=== PATIENT | male | born 1980 | race Caucasian/White ===

== ENCOUNTER → 2020-07-13 13:20 | Outpatient (BNVA) | payer BC, SELFPAY | PROVIDERS: Family Provider Family Medicine; Visit Provider Nurse Practitioner | DX: Z20.828 Contact with and (suspected) exposure to other viral communicable diseases (principal) | CPT/HCPCS: 87635 ==

== ENCOUNTER 2022-12-18 09:12 | Outpatient (CLI) | payer BC, SELFPAY ==
--- NOTE | 2022-12-18 | CT_ITS ---
WS: [id number] CT LEFT FOOT, NONCONTRAST. HISTORY: DEFORMITY, pain. Technique: All CT scans at [facility] use at least one of these dose optimization techniques: automated exposure control; mA and/or kV adjustment per patient size (includes targeted exams where dose is matched to clinical indication); or iterative reconstruction. DLP: 116.25 mGy.cm COMPARISON: None available. Osseous bridging between the anterior process of the calcaneus and the navicular. There is a complete bone bridging with no articulation. Normal appearance of the talus. No additional coalitions are remberto dent. Normal alignment of the tarsal metatarsal articulations. No fractures or displacement. Site of the Ac hilles tendon attachment is normal. No plantar spurring. Well-circumscribed 7 mm osseous density adjacent to the cuboid consistent with an os cuboideum second arium. CT/CT foot LT wo con* [id number] IMPRESSION: 1. 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
== END 2022-12-18 09:13 | disposition home or self-care (01) ==
PROVIDERS: PCP Family Medicine; Visit Provider Podiatrist Primary Podiatric Medicine
DX: Q66.89 Other specified congenital deformities of feet (principal)
CPT/HCPCS: 73700

== ENCOUNTER → 2024-05-01 10:57 | Outpatient (BNVA) | payer BC, SELFPAY | PROVIDERS: PCP Family Medicine; Visit Provider Nurse Practitioner Family | DX: M25.572 Pain in left ankle and joints of left foot (principal) | CPT/HCPCS: 73610; 73630 ==

== ENCOUNTER 2024-05-02 11:59 | Outpatient (CLI) | payer BC, SELFPAY | END 2024-05-02 12:00 | disposition home or self-care (01) | LOC: LAB 12:02 | PROVIDERS: PCP Family Medicine; Visit Provider Surgery | DX: K92.1 Melena (principal) | CPT/HCPCS: 82274; 83630 ==

== ENCOUNTER 2024-05-16 06:39 | Day surgery (SDC) | payer BC, SELFPAY ==
--- NOTE | 2024-05-16 06:11 | W.PM.OPSUD ---
Surgery/Procedure H&P Update DATE OF PROCEDURE: May 16, 2024 DATE H&P PERFORMED: 04/21/24 H&P UPDATE INFORMATION: I have reviewed H&P completed within last 30 days, I have examined patient prior to procedure, No changes to prior documentation and H&P is in [facility] EMR on date indicated PLANNED PROCEDURE: Operation Date: 05/16/24 07:45 Proposed Procedures p EGD 61387, 81629, G0105, K92.1(Not Applicable) - Ilya Roberts MD s Colonoscopy(Not Applicable) - Ilya Roberts MD
[2024-05-16 06:50] VITALS: BP 140/89; PULSE 69; RESP 18; TEMP 36.2; O2SAT 95; BMI 31.6
[2024-05-16] MEDS: sodium chloride 0.9% 1,000 ML 30 ML IV (07:00)
--- NOTE | 2024-05-16 07:15 | ANES.PREANE2 ---
Pre-Anesthetic Assessment Height/Weight: Height 1.85 m Weight 108.862 kg Temp Pulse Resp BP Pulse Ox O2 Del Method 97.1 F L 69 18 140/89 95 Room Air 05/16/24 06:50 05/16/24 06:50 05/16/24 06:50 05/16/24 06:50 05/16/24 06:50 05/16/24 06:50 Operation Date: 05/16/24 07:45 Proposed Procedures p EGD 52528, 77205, G0105, K92.1(Not Applicable) - Ilya Roberts MD s Colonoscopy(Not Applicable) - Ilya Roberts MD Familial anesthetic complications: None Was Beta Robert taken within 24 hours: N/A Was Clonidine taken within 24 hours: N/A Last intake: Intake Last Liquid Date 05/14/24 Last Liquid Time 20:00 Last Solid Date 05/14/24 Last Solid Time 18:00 Social No alcohol and No tobacco Exam alert, oriented x 3, clear to auscultation bilaterally and regular rate & rhythm Airway Mallampati: Class IV Dentition: full Anesthetic Plan ASA status: 1 Anesthesia: MAC Risk of > 500 ml blood loss (7ml/kg in children): No Medications/Allergies Home Medications Medication Instructions Recorded Confirmed Last Taken Type No Known Home Medications 12/21/22 05/11/24 Unknown History Allergies Allergy/AdvReac Type Severity Reaction Status Date / Time No Known Allergies Allergy Verified 05/11/24 11:19 Current Medications Generic Name Dose Route Start Last Admin Trade Name Freq PRN Reason Stop Dose Admin Sodium Chloride 1,000 mls @ 30 mls/hr 05/16/24 06:45 05/16/24 07:00 Sodium Chloride 0.9% IV 05/17/24 06:44 30 mls/hr .Q24H KEVIN Administration PFSH Anesthesia Surgical History Hx of appendectomy Social History Smoking and tobacco/nicotine status: former use of tobacco/nicotine Alcohol intake: current Alcohol intake frequency: 0-2 Drinks per Day Substance/Drug Use: never Data Anesthesia Cardiac Studies: No Data to Display
[2024-05-16 08:22] VITALS: BP 110/74; PULSE 67; RESP 20; TEMP 36.3; O2SAT 96
[2024-05-16 08:31] VITALS: BP 129/89; PULSE 69; RESP 18; O2SAT 97
[2024-05-16 08:36] VITALS: BP 133/90; PULSE 63; RESP 18; O2SAT 97
--- NOTE | 2024-05-16 08:50 | ANE.PACU2 ---
Inpatient post-anesthesia follow up: Airway intact: Yes Vital signs: Temperature 97.3 F Pulse Rate 63 Respiratory Rate 18 Blood Pressure 133/90 Pulse Oximetry 97 Oxygen Delivery Me thod Room Air Oxygen Flow Rate Fraction of Inspir ed Oxygen Hydration adequate: Yes Nausea and vomiting: No Pain level: 1 Mental status: Baseline
== END 2024-05-16 08:51 | disposition home or self-care (01) ==
PROVIDERS: PCP Family Medicine; Visit Provider Surgery
PROC: 0DJ08ZZ Inspection of Upper Intestinal Tract, Via Natural or Artificial Opening Endoscopic (ICD-10-PCS; CPT 43235; principal; 2024-05-16 07:45)
PROC: 0DJD8ZZ Inspection of Lower Intestinal Tract, Via Natural or Artificial Opening Endoscopic (ICD-10-PCS; CPT 45378; 2024-05-16 07:45)
DX: K92.1 Melena (principal); K57.30 Diverticulosis of large intestine without perforation or abscess without bleeding; K64.8 Other hemorrhoids; K44.9 Diaphragmatic hernia without obstruction or gangrene; K29.80 Duodenitis without bleeding; K29.50 Unspecified chronic gastritis without bleeding; Z87.891 Personal history of nicotine dependence
CPT/HCPCS: 43239; 45378; 88305; 88342; J2704; J7030

== ENCOUNTER 2024-09-05 08:25 | Outpatient (CLI) | payer BC, SELFPAY ==
[2024-09-05 09:10] LABS: Microalbumin Total Volume 1575 mL; Total Volume Urine 1575 ml
[2024-09-05 09:21] LABS: Glomerular Filtration Rate 91.7 mL/min (90-130)
[2024-09-05 09:24] LABS: Urine Total Protein 5.5 mg/dL (0-150)
[2024-09-05 09:27] LABS: Microalbumin 24 Hour Result 19 mg/24HR (0-30); Microalbumin Result 1.2 mg/dL
[2024-09-05 09:34] LABS: Creatinine Clearance, Urine 149 mL/Min (97-137); Creatinine, Urine (Cre Clear) 117 mg/dL (39-259); Total Volume, Urine 1575 mL; Urine Total Protein 24 Hour 86.6 mg/24hr (0-150)
== END 2024-09-05 08:26 | disposition home or self-care (01) ==
LOC: LAB 08:34
PROVIDERS: PCP Family Medicine; Visit Provider Internal Medicine
DX: Z00.5 Encounter for examination of potential donor of organ and tissue (principal)
CPT/HCPCS: 82043; 82575; 84156

== ENCOUNTER 2025-01-05 10:11 | Outpatient (CLI) | payer BC, SELFPAY ==
[2025-01-05 10:50] LABS: Anion Gap 14.3 (5-19); Blood Urea Nitrogen 21 mg/dL (6-20); Calcium 9.4 mg/dL (8.5-10.5); Carbon Dioxide 25 mmol/L (22-29); Chloride 101 mmol/L (98-107); Glucose 97 mg/dL (65-115); Osmolality Calculated 285 mOsm/kg (285-295); Potassium 4.3 mmol/L (3.5-5.1); Sodium 136 mmol/L (136-145)
== END 2025-01-05 10:12 | disposition home or self-care (01) ==
LOC: LAB 10:22
PROVIDERS: PCP Family Medicine
DX: Z52.4 Kidney donor (principal)
CPT/HCPCS: 36415; 80048

== ENCOUNTER 2025-04-17 10:12 | Outpatient (CLI) | payer OTHER, SELFPAY ==
[2025-04-17 11:40] LABS: Basophils % 0.4 %; Eosinophils # 0.2 10^3/uL (0.0-0.8); Eosinophils % 3.8 %; Hematocrit 45.7 % (37-53); Lymphocytes # 1.4 10^3/uL (0.8-4.8); Lymphocytes % 27.9 %; Mean Corpuscular Hemoglobin 32.3 pg (27-33); Mean Corpuscular Volume 92.1 fl (82-101); Mean Platelet Volume 11.3 fL (7.4-10.4); Monocytes # 0.5 10^3/uL (0.2-0.9); Monocytes % 9.7 %; Neutrophils # 2.88 10^3/uL (1.8-7.7); Neutrophils % 58.2 %; Nucleated Red Blood Cells % 0 %; Platelet Count 161 10^3/cmm (157-399); Red Blood Count 4.96 10^6/uL (3.85-5.65); Red Cell Distribution Width 13.2 % (12.1-15.1); White Blood Count 4.95 10^3/uL (3.29-11.43)
[2025-04-17 11:44] LABS: Bilirubin Urine Negative (Negative); Blood Urine Negative (Negative); Glucose Urine UA Negative (Normal); Ketones Urine Trace (Negative); Leukocyte Esterase Urine Negative (Negative); Nitrate Urine Negative (Negative); Protein Urine Trace (Negative); Urine Appearance Clear (CLEAR); Urine Color Yellow (Yellow); pH Urine 6.5 (5-7)
[2025-04-17 11:49] LABS: Bacteria Urine None Seen /hpf; Hyaline Casts Urine 0-4 /lpf; RBC Urine 0-2 /hpf (0-2); Squamous Epithelial Cell Urine 0-5 /hpf (0-5); WBC Urine 0-5 /hpf (0-5)
[2025-04-17 11:54] LABS: Add Urine Culture? No
[2025-04-17 11:59] LABS: Alanine Aminotransferase 32 U/L (0-41); Albumin Level 4.4 g/dL (3.5-5.2); Alkaline Phosphatase 85 U/L (40-130); Anion Gap 15.4 (5-19); Aspartate Amino Transferase 20 U/L (0-40); Blood Urea Nitrogen 11 mg/dL (6-20); Calcium 9.4 mg/dL (8.5-10.5); Carbon Dioxide 25 mmol/L (22-29); Chloride 102 mmol/L (98-107); Globulin 2.9 g/dL (1.3-4.6); Glomerular Filtration Rate 54.8 mL/min (90-130); Glucose 94 mg/dL (65-115); Osmolality Calculated 285 mOsm/kg (285-295); Potassium 4.4 mmol/L (3.5-5.1); Sodium 138 mmol/L (136-145); Total Bilirubin 0.5 mg/dL (0.15-1.2); Total Protein 7.3 g/dL (6.6-8.7)
[2025-04-17 12:14] LABS: Creatinine Urine, Random 157 mg/dL (39-259); Microalbum Creatinine Ratio Ur 6 mg/dL (0-20); Microalbumin Random Urine 1 ug/dL (0-20)
== END 2025-04-17 10:13 | disposition home or self-care (01) ==
LOC: LAB 10:27
PROVIDERS: PCP Family Medicine
DX: Z52.4 Kidney donor (principal)
CPT/HCPCS: 36415; 80053; 81001; 82044; 85025